=== PATIENT | female | born 1985 | race Caucasian/White ===

== ENCOUNTER 2020-02-25 10:41 | Inpatient (IN) | payer MEDICAID ==
[~2020-02-25] VITALS: Ht 157.5 cm; Wt 98.9 kg
[2020-02-25] MEDS ORDERED: MORPHINE SULFATE 4 MG/ML SYR IVP PRN (11:10)
[2020-02-25] MEDS ORDERED: CARBOPROST 250 MCG/ML AMP IM PRN (11:10)
[2020-02-25] MEDS ORDERED: METHYLERGONOVINE 0.2 MG/ML AMP IM PRN (11:10)
[2020-02-25] MEDS ORDERED: AMPICILLIN 2,000 MG VIAL ONE (11:53)
[2020-02-25] MEDS ORDERED: AMPICILLIN 2,000 MG in NACL 0.9% MINI-BAG PLUS 100 ML IV SCH (12:00)
[2020-02-25] MEDS: MISOPROSTOL 25 MCG TAB VG SCH ×2 (12:22→16:29)
[2020-02-25] MEDS ORDERED: LABETALOL 200 MG TAB ONE (12:31)
[2020-02-25] MEDS ORDERED: LABETALOL 200 MG TAB PO SCH (13:00)
[2020-02-25 14:41] LABS: APPEARANCE,URINE CLEAR (CLEAR); BILIRUBIN,URINE NEGATIVE (NEGATIVE); BLOOD, URINE 3+ (NEGATIVE); COLOR,URINE ORANGE (YELLOW); LEUKOCYTE ESTERASE ,URINE TRACE (NEGATIVE); NITRITE, URINE NEGATIVE (NEGATIVE); UGLUCOSE NEGATIVE (NEGATIVE)
[2020-02-25 14:42] LABS: BASOPHILS % (AUTO) 0.4 % (0.0-2.0); EOSINOPHILS # (AUTO) 0.1 K/uL (0-0.4); EOSINOPHILS % (AUTO) 0.8 % (0.0-4.0); HEMATOCRIT 31.1 % (36-48); HEMOGLOBIN 10.2 g/dL (12.0-16.0); LYMPHOCYTES # (AUTO) 1.3 K/uL (2.5-16.5); LYMPHOCYTES % (AUTO) 12.8 % (20.5-51.1); MEAN CORPUSCULAR HEMOGLOBIN 26 pg (27-31); MEAN CORPUSCULAR HGB CONC 33 g/dL (33-37); MEAN CORPUSCULAR VOLUME 79.1 fL (80-94); MONOCYTES # (AUTO) 0.3 K/uL (0.8-1.0); MONOCYTES % (AUTO) 3.4 % (1.7-9.3); NEUTROPHILS # (AUTO) 8.5 K/uL (1.8-7.7); NEUTROPHILS % (AUTO) 82.6 % (42.2-75.2); PLATELET COUNT (AUTO) 219 K/uL (140-450); RED BLOOD CELL COUNT(AUTO) 3.94 MIL/uL (4.20-5.40); RED CELL DISTRIBUTION WIDTH 15.8 % (11.6-13.7); WHITE BLOOD COUNT (AUTO) 10.2 K/uL (4.8-10.8)
[2020-02-25 14:44] VITALS: BP 137/83
[2020-02-25 14:56] LABS: RBC,URINE >100 /HPF (0-5)
[2020-02-25] MEDS ORDERED: AMPICILLIN 1,000 MG VIAL ONE ×3 (15:50→23:46)
--- NOTE | 2020-02-25 15:58 | NUR ---
PATIENT HAS BEEN SCREENED AND CATEGORIZED LOW NUTRITION RISK. PATIENT WILL BE SEEN WITHIN 7 DAYS OF ADMISSION. 03/02/[address]
[2020-02-25] MEDS: AMPICILLIN 1,000 MG in NACL 0.9% MINI-BAG PLUS 50 ML IV SCH ×2 (16:04→20:10)
[2020-02-25] MEDS ORDERED: ROPIVACAINE 0.2%/NS PREMIX 200 ML EPI ONE (20:56)
[2020-02-25] MEDS ORDERED: MAG SULF 2000 MG/WATER PREMIX 50 ML IV ONE (22:10)
[2020-02-25] MEDS ORDERED: MAG SULF 20 GM/H2O PREMIX DRIP 500 ML IV ONE (22:11)
[2020-02-25] MEDS ORDERED: OXYTOCIN 20 UNITS/LR PREMIX 1,000 ML IV ONE (22:48)
[2020-02-25] MEDS ORDERED: fentaNYL 0.05 MG/ML VIAL ONE (23:28)
[2020-02-25] MEDS: LACTATED RINGERS 1,000 ML IV SCH (23:30)
[2020-02-26] MEDS: AMPICILLIN 1,000 MG in NACL 0.9% MINI-BAG PLUS 50 ML IV SCH ×2
[2020-02-26] MEDS ORDERED: hydrALAZINE 20 MG/ML VIAL IVP ONE (00:05)
[2020-02-26] MEDS ORDERED: hydrALAZINE 20 MG/ML VIAL ONE (00:09)
[2020-02-26 00:10] VITALS: BP 188/98
[2020-02-26] MEDS ORDERED: TEMAZEPAM 15 MG CAP PO PRN (01:20)
[2020-02-26] MEDS ORDERED: OXYTOCIN 10 UNITS/ML VIAL IM PRN (01:20)
[2020-02-26] MEDS ORDERED: SODIUM PHOSPHATE 118 ML ENEM RC PRN (01:20)
[2020-02-26] MEDS ORDERED: BENZOCAINE/MENTHOL 20%-0.5% 60 GM CAN TP PRN (01:20)
[2020-02-26] MEDS ORDERED: MEASLES, MUMPS, AND RUBELLA 1 VIAL SQVAC PRN (01:20)
[2020-02-26] MEDS ORDERED: oxyCODONE/APAP 5/325 MG 1 TAB TAB PO PRN (01:20)
[2020-02-26] MEDS ORDERED: HYDROcodone/APAP 5/325 MG 1 TAB TAB ONE (01:58)
[2020-02-26] MEDS: HYDROcodone/APAP 5/325 MG 1 TAB TAB PO PRN ×2 (03:43→07:44)
[2020-02-26] MEDS ORDERED: MAG SULF 20 GM/H2O PREMIX DRIP 500 ML IV ONE (09:04)
[2020-02-26] MEDS: LACTATED RINGERS 1,000 ML IV SCH (14:31)
[2020-02-26] MEDS: IBUPROFEN 800 MG TAB PO PRN ×2 (14:35→20:35)
[2020-02-26] MEDS: LABETALOL 100 MG TAB PO SCH (20:35)
[2020-02-26] MEDS ORDERED: DOCUSATE SOD/SENNA 50/8.6 MG 1 TAB PO SCH (21:00)
[2020-02-26] MEDS: CALCIUM POLYCARBOPHIL 625 MG TAB PO SCH (21:36)
[2020-02-27] MEDS ORDERED: INFLUENZA VACCINE QUAD 0.5 ML SYR IMVAC PRN (02:05)
[2020-02-27] MEDS: IBUPROFEN 800 MG TAB PO PRN ×2 (04:15→14:45)
[2020-02-27 06:13] LABS: HEMATOCRIT 28.1 % (36-48); HEMOGLOBIN 9.2 g/dL (12.0-16.0)
[2020-02-27] MEDS: LABETALOL 100 MG TAB PO SCH ×2 (08:59→21:07)
[2020-02-27] MEDS: CALCIUM POLYCARBOPHIL 625 MG TAB PO SCH ×3 (08:59→21:08)
[2020-02-27] MEDS ORDERED: MAG SULF 2000 MG/WATER PREMIX 50 ML IV ONE (22:10)
[2020-02-28] MEDS: IBUPROFEN 800 MG TAB PO PRN ×2 (01:58→08:56)
[2020-02-28] MEDS: CALCIUM POLYCARBOPHIL 625 MG TAB PO SCH (08:55)
[2020-02-28] MEDS: LABETALOL 100 MG TAB PO SCH (08:56)
== END 2020-02-28 11:17 | disposition home or self-care (01) | DRG 560 ==
LOC: MFCC 10:41 → OBSVTOIN 10:41 → MFCC 02-26 20:45
PROVIDERS: ADMIT Obstetrics & Gynecology; ATTEND Obstetrics & Gynecology
PROC: 10E0XZZ Delivery of Products of Conception, External Approach (ICD-10-PCS; principal; 2020-02-26)
PROC: 00HU33Z Insertion of Infusion Device into Spinal Canal, Percutaneous Approach (ICD-10-PCS; 2020-02-26)
PROC: 3E0R3BZ Introduction of Anesthetic Agent into Spinal Canal, Percutaneous Approach (ICD-10-PCS; 2020-02-26)
PROC: 3E0234Z Introduction of Serum, Toxoid and Vaccine into Muscle, Percutaneous Approach (ICD-10-PCS; 2020-02-27)
PROC: 3E02340 Introduction of Influenza Vaccine into Muscle, Percutaneous Approach (ICD-10-PCS; 2020-02-27)
DX: O14.04 Mild to moderate pre-eclampsia, complicating childbirth (principal); R71.0 Precipitous drop in hematocrit; O26.893 Other specified pregnancy related conditions, third trimester; Z37.0 Single live birth; O69.89X0 Labor and delivery complicated by other cord complications, not applicable or unspecified; O69.81X0 Labor and delivery complicated by cord around neck, without compression, not applicable or unspecified; Z67.41 Type O blood, Rh negative; Z23 Encounter for immunization; Z3A.39 39 weeks gestation of pregnancy
CPT/HCPCS: 36415; 51702; 59200; 81001; 85018; 85025; 86592; 86870; 86886; 86900; 86901; 87086; 90707; 90715; J0290; J0360; J2590; J2790; J2795; J3010; J3475; J7120